=== PATIENT | female | born 1955 | race Caucasian/White ===

== ENCOUNTER 2017-02-14 12:30 | Outpatient (RCR) | payer MEDICARE | END 2017-02-26 | disposition home or self-care (01) | LOC: PTY 12:30 | DX: M76.71 Peroneal tendinitis, right leg (principal); M77.50 Other enthesopathy of unspecified foot and ankle; M67.01 Short Achilles tendon (acquired), right ankle | CPT/HCPCS: 97033; 97035; 97110; 97140; 97162; G8978; G8979 ==

== ENCOUNTER → 2017-03-29 | Outpatient (RCR) | payer MEDICARE | END | disposition home or self-care (01) | LOC: PTY 02-28 13:50 | DX: M76.71 Peroneal tendinitis, right leg (principal); M77.50 Other enthesopathy of unspecified foot and ankle; M67.01 Short Achilles tendon (acquired), right ankle | CPT/HCPCS: 97033; 97110; 97140; G8981; G8982 ==

== ENCOUNTER 2017-04-25 13:00 | Outpatient (RCR) | payer MEDICARE | END 2017-04-28 | disposition home or self-care (01) | LOC: PTY 13:00 | DX: M76.71 Peroneal tendinitis, right leg (principal) ==